=== PATIENT | male | born 1980 | race Caucasian/White ===

== ENCOUNTER 2016-06-05 20:31 | Inpatient (IN) | payer SELFPAY ==
[~2016-06-05] VITALS: Ht 182.9 cm; Wt 104.0 kg
[2016-06-05 20:44] VITALS: BP 162/76; PULSE 120; RESP 37; O2SAT 93
[2016-06-05 21:05] LABS: BASOPHILS % (AUTO) 0.2 % (0-3); EOSINOPHILS % (AUTO) 0.2 % (0-5); MONOCYTES % (AUTO) 11.5 % (4-12); Mean Corpuscular Volume 86.3 fL (81-100); NEUTROPHILS % (AUTO) 82.4 % (40-74); Platelet Count 168 bil/L (150-400)
--- NOTE | 2016-06-05 21:18 | DRSVH ---
PROCEDURE: X-RAY CHEST ONE VIEW, PORTABLE ([id number]) INDICATIONS: shortness of breath , cough TECHNIQUE: One view of the chest was acquired. COMPARISON: None. FINDINGS: Surgical changes and devices: radiation monitor leads are seen over the chest. Lungs and pleura: No pleural effusions or pneumothorax. Lungs are clear. Mediastinum: Mediastinal contours appear normal. Heart size is normal. Bones and chest wall: No suspicious bony lesions. Overlying soft tissues appear unremarkable. IMPRESSION: No acute disease is seen in this semiupright portable chest Dictated by: Yaron Atkins M.D. on 06/05/2016 at 21:15 Approved by: Yaron Atkins M.D. on 06/05/2016 at 21:15
[2016-06-05 21:25] LABS: TROPONIN T 0.01 ug/L (0.0-0.011)
--- NOTE | 2016-06-05 21:46 | ED.REPORT ---
HPI-Dyspnea / Wheezing Date of Service Jun 05, 2016 ED Provider: Jose Rasmussen MD A 36 year old male presents to the ED complaining of flu symptoms that began 2 weeks ago. Associated symptoms include SOB, fever, wheezing, myalgia, sore throat, diarrhea, vomiting, productive cough with clear sputum, dysuria and rhinorrhea. Patient has also been experiencing insomnia due to the cough. He reports that he woke up this morning, began coughing and felt as if he could not breathe. Patient has been drinking a lot of fluid and has remained in bed since onset. His symptoms have become progressively worse over the past 3 days. Patient denies smoking since symptom onset. Nursing Notes Stated Complaint: DIFFICULTY BREATHING Chief Complaint: FLU/Cold Symptoms Nursing Notes Reviewed: Yes Allergies: Coded Allergies: No Known Allergies (Unverified , 06/05/16) Scheduled Azithromycin (Zithromax) 250 Mg Tablet 250 MG PO DAILY Scheduled PRN Ondansetron (Zofran) 4 Mg Tablet 4 MG PO Q4H PRN PRN For Nausea General Time Seen by MD: 21:38 Chief Complaint Other (Dyspnea) Hx Obtained From: Patient Arrived By: Walk-in Sudden in Onset?: No Onset Occurred: More than a week ago... (2 weeks) Symptom Duration: Since onset Associated with: Reports: Cough, Fever, Nausea Pertinent Negative: Pt denies other symptoms Recent Healthcare: No recent doctor visit, No recent hospitalization Past Medical History Past Medical History Notes: No PCP Past Medical History None reported Past Surgical History None reported Smoking History Current Every Day Smoker Social History Alcohol Use: Denies alcohol use Drug Use: THC Other Social History: Good social support, Local resident Ambulatory Status Independent Review of Systems Constitutional: Reports: Chills, Fever, Malaise Ears / Nose / Throat: Reports: Sore throat Respiratory: Reports: Dyspnea on exertion, Prod cough, clear, Shortness of breath Cardiovascular: Denies: Chest pain Musculoskeletal: Reports: Myalgia Allergy / Immune: Reports: Rhinorrhea Complete sys rev & neg: except as marked. GI: Reports: Nausea, Denies: Abdominal pain, Vomiting Male: Reports Dysuria Neurologic: Denies: Change LOC Psychiatric: Reports: Insomnia Physical Exam Initial Vital Signs Vital Signs (First) Date Time Temp Pulse Resp B/P Pulse Ox O2 Delivery O2 Flow Rate FiO2 06/05/16 20:44 39.3 120 37 162/76 93 Room Air Initial VS: Reviewed Head / Eyes: Atraumatic, Normocephalic, PERRL Extremities: Vascular intact, Neuro intact, No swelling, No tenderness Skin: Warm, Dry, No cyanosis Neurologic: Alert, Oriented, Nonfocal Psychiatric: Mood/affect normal, Behavior normal, Normal thought content General/Constitutional: Awake, Alert Neck: Atraumatic, Supple Soft Tissue Neck: Positive: Cervical adenopathy L... (Mild), Cervical adenopathy R... (Mild ) Respiratory / Chest: Atraumatic, Breath sounds = bilat Wheezing / Retractions: Positive: Wheezing mild (Scattered wheezes ) Cardiovascular: Regular rhythm, Heart sounds NL, No gallop, No murmurs, No rubs Heart Rate / Rhythm: Positive: Tachycardia ENT: Atraumatic, Airway patent ENT: Oropharynx injected without exudate Interpretation & Diagnostics Lab Results Interpretation Result Diagram: 06/05/16203906/05/162039 Test 06/05/16 20:40 White Blood Count 12.7th/mm3 (3.8-10.1) Red Blood Count 4.97mil/mm3 (4.40-5.80) Hemoglobin 15.4g/dL (13.8-17.2) Hematocrit 42.9% (41.0-50.0) Mean Corpuscular Volume 86.3fL (81-100) Mean Corpuscular Hemoglobin 31.0pg (27.0-35.0) Mean Corpuscular Hemoglobin Concent 35.9% (32.0-37.0) Red Cell Distribution Width 12.6% (12.3-15.4) Platelet Count 168bil/L (150-400) Neutrophils (%) (Auto) 82.4% (40-74) Lymphocytes (%) (Auto) 5.1% (14-46) Monocytes (%) (Auto) 11.5% (4-12) Eosinophils (%) (Auto) 0.2% (0-5) Basophils (%) (Auto) 0.2% (0-3) D-Dimer 0.5mg/L (<0.50) Sodium Level 129mEq/L (134-144) Potassium Level 3.5mEq/L (3.5-5.2) Chloride Level 90mEq/L (97-108) Carbon Dioxide Level 20mmol/L (18-29) Blood Urea Nitrogen 9mg/dL (6-20) Creatinine 0.78mg/dL (0.76-1.27) Estimat Glomerular Filtration Rate 120mL/min (>59) Glucose Level 135mg/dL (60-99) Lactic Acid Level 1.8mmol/L (0.4-2.0) Calcium Level 8.5mg/dL (8.5-10.1) Total Bilirubin 0.9mg/dL (0.0-1.2) Aspartate Amino Transf (AST/SGOT) 35U/L (0-50) Alanine Aminotransferase (ALT/SGPT) 21U/L (0-44) Alkaline Phosphatase 76U/L (25-150) Troponin T 0.010ug/L (0.0-0.011) Pro-B-Type Natriuretic Peptide 87.30pg/mL (0-86) Total Protein 8.2g/dL (6.4-8.4) Albumin 3.9g/dL (3.4-5.0) Lab Results Interpretation: Blood Gas Report pH 7.507 pCO2 30 pO2 61 cHCO3 (P) 23.4 cBase 1.7 tHb 15.6 sO2 93.5 (93% saturation on room air) fCOHb 1.2 FMetHb .8 FO2Hb 91.6 X-Ray Chest Interpretation Chest Xray Interpretation: IMPRESSION: No acute disease is seen in this semiupright portable chest Dictated by: Yaron Atkins M.D. on 06/05/2016 at 21:15 Interpretation / Wet Read by: Interpret - Radiologist Re-Eval/Medical Decision Med Decision/Clinical Course 36-year-old previously healthy smoker with a febrile illness and a cough. Influenza was suspected however the influenza screen was negative and his report is that he has been symptomatic for about 3 days so Tamiflu is unlikely to be helpful. Also reports she had a respiratory illness prior to this so I considered the possibility that he is developing a post-influenza pneumonia. He was quite to An arterial blood gas showed that he was hyperventilating, while he is mildly hypoxic saturations on the blood gas are greater than 90% and I do not believe he has a requirement for supplemental oxygen. Pulmonary embolism was considered however he is low risk and has a normal d-dimer. We started azithromycin in the emergency department. He was given ondansetron for nausea and vomiting. He is noted to be mildly hyponatremic and admits to pushing water at home. Advised him to drink some fluids that contain electrolytes. He will finish a five-day course of azithromycin use albuterol as needed refer to the associated residence clinic for follow-up. Re-Evaluation/Progress : Time of Eval: 23:06 Patient Status: Condition improved Re-Evaluation/Progress Note: Patient is rechecked. He is informed of his lab results, X-ray results and diagnosis. All of the patient's questions are addressed. He understands and agrees with the treatment plan. Counseled Regarding: Diagnosis, Lab results, Need for follow-up, When/why to return to ED Discharge & Departure Impression: Primary Impression: Pneumonia Pneumonia type: due to unspecified organism Laterality: unspecified laterality Lung location: unspecified part of lung Qualified Code: B99.9 - Unspecified infectious disease Disposition: Home Discharge Condition All VS Reviewed: Yes Condition: Stable Patient Instructions: Bacterial Pneumonia (ED) Additional Instructions: ED evaluation included interview exam labs chest x-ray. We note increasing shortness of breath and fever, cough which has been present for .1 week now worse with production of brown sputum. While no pneumonia is seen on chest x- ray, we will treat for pneumonia given clinical appearance. Azithromycin for a 5 day course is started in ED. May use ondansetron as needed for nausea/ vomiting. Albuterol 2 puffs every 4 hours as needed for wheezing. Get adequate rest, use ibuprofen or tylenol as needed for fevers. For hydration , use gatorade or broth so you get some elctrolyte replacement. Return to ED for increasing shortness of breath uncontrolled vomiting. Referrals: [facility] Scribe Attestation Portions of this note were transcribed by Kunal Garcia. I, Dr. Rasmussen personally performed the history, physical exam and medical decision-making; I reviewed and confirmed the accuracy of the information in the transcribed note. Signed by: Kunal Garcia, 06/05/16, 1244. copies to: [facility] Jose Rsamussen MD Jun 05, 2016 21:46 KUNAL GARCIA Jun 05, 2016 22:03
[2016-06-05] MEDS ORDERED: _Albuterol-HFA 60 Puff Inhaler INHALATION PRN (22:05)
--- NOTE | 2016-06-05 22:40 | ABG ---
DateTimeAnalyzed 22:35:00 -_ pH ____7.507 - 7.350 7.450 pCO2 ___29.8__ -mmHg 35.0 45.0 pO2 ___61.0__ -mmHg 69.0 116 HCO3- ___23.4__ -mmol/L 22.0 26.0 ABE ____1.7__ -mmol/L -2.0 2.0 tHb ___15.6__ -g/dL O2Hb ___91.6__ -% COHb ____1.2__ -% MetHb ____0.8__ -% sO2 ___93.5__ -% 25.0 FIO2 ___21.0__ -% Drawn By RB - Notified By RB - Notified Whom DR - B 744 -mmHg tO2 ___20.1__ -Vol% Ramez test _Positive -
[2016-06-05] MEDS ORDERED: Ondansetron 2 mg/mL 2 mL Inj IVPUSH ONE (23:05)
[2016-06-05 23:15] VITALS: BP 143/76; PULSE 108; RESP 30; O2SAT 93
[2016-06-05] MEDS ORDERED: ONDA4TAB6 PO (23:15)
[2016-06-05] MEDS ORDERED: ZIT250 PO (23:15)
[2016-06-06] VITALS (17 sets, daily range): BP systolic 121–182; BP diastolic 64–119; PULSE 96–135; RESP 20–32; O2SAT 91–97
[2016-06-06] MEDS ORDERED: 0.9% Sodium Chloride 1,000 ML IV ONE ×2 (00:45→04:40)
[2016-06-06] MEDS ORDERED: Alum-Mag Hydrox-Simeth 30 mL Suspension PO PRN (02:15)
[2016-06-06] MEDS ORDERED: Polyethylene Glycol (PEG) 17 Gm Powder PO PRN (02:15)
[2016-06-06] MEDS ORDERED: Ondansetron 2 mg/mL 2 mL Inj IVPUSH PRN (02:25)
--- NOTE | 2016-06-06 03:01 | PCM.HPMED ---
Subjective Date of Service Jun 06, 2016 Primary Provider: Admitting Physician: Nuvia Ascencio MD Primary Care Physician: Nopstacy Attending Physician: Nuvia Ascencio MD Chief Complaint: Fevers, myalgia History of Present Illness: Previously healthy 36 yo M smoker presents with complaints of fevers, chills, myalgia, diaphoresis, fatigue, SOB, n/v/d, and productive cough x 2 weeks. Patient reports that his symptoms have been worsening the past 3 days and today his cough and shortness of breath was worse so he came to the ER for assessment. He reports he has been drinking a lot of water and has been in bedrest since being sick. He reports that his roommate also had similar symptoms and was sick a few days prior to him. His roommate was sick for approximately 2 weeks and has recovered now. He denies any other sick contacts or recent travel but reports that he just moved up from [place] 3 months ago. He does not have a PCP currently, but reports his childhood immunizations are UTD. In the ED, he was found to be tachycardia, tachypneic, and feverish up to 39.6c. His SpO2 was between 92-93% on RA at rest, but was noted to decrease down to 88% with ambulation. His WBC was 12.7 with 82.4% neutrophils%. His CMP was pertinent for Sodium of 129 and Lactic acid of 1.8. He did have an ABG that showed mild respiratory alkalosis with pH of 7.507 and pO2 of 61. His portable CXR did not show any acute disease. Rapid Flu screen was negative. Review of Systems: 12 point ROS negative except as stated in HPI Allergies Coded Allergies: No Known Allergies (Unverified , 06/05/16) Home Medications Denies any PMH Healthy Surgical History Denies any Family History Noncontributory Social History Hx Alcohol Use: No Hx Substance Use: Yes (Smokes marijuana) Smoking Status: Current Every Day Smoker Living Arrangement: with Friends/Roommate Exam Vital Signs Vital Sign - Last Date Time Temp Pulse Resp B/P Pulse Ox O2 Delivery O2 Flow Rate FiO2 06/06/16 02:16 38.1 96 22 152/87 93 Room Air Intake and Output 06/05/16 06/05/16 06/06/16 Cumulative From/Thru 15:00 23:00 07:00 06/05/16 20:44 - 06/06/16 00:58 Intake Total 1100 ml 1100 ml Balance 1100 ml 1100 ml Intake Oral 100 ml 100 ml IV Total 1000 ml 1000 ml Exam Gen: WD/WN male in moderate distress HEENT: PERRLA, Sclera non-icteric, Oropharynx erythematous without exudates Neck: Soft, mildly tender to palpation, shotty cervical lymph nodes palpated CV: Tachycardic, no m/r/c Resp: B/L diffuse wheezing, increased respiratory effort, no accessory muscle usage noted Abd: Soft, nontender MSK: Muscle strength grossly intact and equal Neuro: Alert and oriented, Light sensation grossly intact Skin: Warm, Dry, Intact Psych: Appropriate mood and affect Lab and Diagnostics Result Diagram: 06/05/16203906/05/162039 X-Rays, CTs and MRIs PROCEDURE: X-RAY CHEST ONE VIEW, PORTABLE ([id number]) INDICATIONS: shortness of breath , cough TECHNIQUE: One view of the chest was acquired. COMPARISON: None. FINDINGS: Surgical changes and devices: hospital monitor leads are seen over the chest. Lungs and pleura: No pleural effusions or pneumothorax. Lungs are clear. Mediastinum: Mediastinal contours appear normal. Heart size is normal. Bones and chest wall: No suspicious bony lesions. Overlying soft tissues appear unremarkable. IMPRESSION: No acute disease is seen in this semiupright portable chest Assessment & Plan Previously healthy 36 yo M smoker presents with complaints of fevers, chills, myalgia, diaphoresis, fatigue, SOB, n/v/d, and productive cough x 2 weeks, worse in the past 3 days. Patient is admitted for observation and workup of possible post-viral pneumonia. Sepsis -Patient meets sepsis criteria with elevated Temp, tachycardia, tachypnea, elevated WBC, and lungs as source of suspected infection. -With patient's symptoms and hypoxia, post-viral pneumonia cannot be ruled out. DDx includes Coccidiomycosis due to recent residence in [place]. -Initial Rapid Flu negative in ER for Influenza A&B. Patient received 1L bolus in the ER. Will plan for another 1L bolus then IV NS at 150mls/hr. -Nasopharyngeal PCR pending. -Procalcitonin and ESR pending -Consider CT scan in the AM. -Albuterol and Tylenol PRN -Patient already received 1 dose of Azithromycin, will plan to continue the pack. N/V/D -Symptomatic management with IV Zofran -IV NS 150mls/hr -General Diet as tolerated. Tobacco Abuse -Nicotine patch as needed Pain Evaluation: Adequate Pain Control VTE Mechanical Devices: Intermittant Pneumatic CD Resuscitation Status: CPR: Attempt Resuscitation Attending Statement Pt seen and examined by myself and agree with above plan. Bhupendra Cade DO Jun 06, 2016 02:34 Nuvia Ascencio MD Jun 06, 2016 18:55
[2016-06-06] MEDS: 0.9% Sodium Chloride 1,000 ML IV SCH ×3 (03:13→12:22)
[2016-06-06] MEDS ORDERED: no medications (03:38)
--- NOTE | 2016-06-06 03:51 | NUR ---
Admission Pt admitted for shortness of breath/fever. Temp most recently 38.1C. Given tylenol recently. Fan on in room RR 32. Ins/exp wheezes. Breath sounds moderately decreased. Pt is able to rest on his side. Pt understands to use call light when up OOB SCDs on. Cont pulse ox on at bedside. Care ongoing
[2016-06-06] MEDS: Albuterol 2.5 mg/3 mL Inhalation Solution NEB PRN ×4 (04:15→18:33)
[2016-06-06 05:18] LABS: APPEARANCE,URINE CLEAR (CLEAR,HAZY); COLOR,URINE YELLOW (YELLOW); OCCULT BLOOD,URINE MODERATE (NEGATIVE); UROBILINOGEN,URINE NORMAL (NORMAL)
--- NOTE | 2016-06-06 06:00 | NUR ---
Anxiety RN called to room by friend saying that the pt was having an anxiety attack. Pt stated to RN, "I'm freaking out". RR 40. HR 130. T39.1 Lungs are decreased with insp/exp wheezing. Reported findings to MD. Called RT to assess patient as well. Ativan ordered. MD arrived at bedside to see patient. Ativan given. Pt appears calmer. Tylenol given. Pt aware that MD ordered temazepam to be given now for sleep deprivation. Awaiting RX to approve order. Care ongoing
[2016-06-06 07:41] LABS: BASOPHILS % (AUTO) 0.2 % (0-3); EOSINOPHILS % (AUTO) 0.3 % (0-5); MONOCYTES % (AUTO) 13.6 % (4-12); Mean Corpuscular Hemoglobin 30.9 pg (27.0-35.0); Mean Corpuscular Volume 87.3 fL (81-100); NEUTROPHILS % (AUTO) 81.1 % (40-74); Platelet Count 134 bil/L (150-400)
[2016-06-06] MEDS ORDERED: Influenza (Adult) Vaccine 0.5 mL Syringe IM ONE (08:30)
--- NOTE | 2016-06-06 11:10 | NUR ---
Nausea/Vomiting Patient reported nausea and vomiting. 4 mg of ondansetron given. Denies pain at this time. Call light and tray table within reach. Will continue to monitor patient hourly.
--- NOTE | 2016-06-06 15:52 | NUR ---
Social Work Screening D: EMR reviewed. Pt is a 36Y old male Kimmie for Flu Like Illness. Insurance is Self Pay, No PCP listed. ADINA met with Pt at bedside, SW role explained. Pt lives at home with friend/roommate in [place] where he is independent. Pt reports use of THC. SW confirmed Pt does not have PCP and has no insurance. Pt agreeable to schedule appointment at the [facility] for follow up and establishing care appointment. ADINA requested CM Modern Greek Studies Professor to schedule appointments for Pt. Pt provided with [facility] Application. ADINA left message for [facility]to follow Pt for IRIS eligibility. No discharge needs identified at this time. Pt to likely travel home via POV with roommate to drive when medically stable. A: Pt who is independent at baseline P: Pt agreeable to schedule appointment at the [facility] for follow up and establishing care appointment. ADINA requested CM Modern Greek Studies Professor to schedule appointments for Pt. Pt provided with [facility] Application. ADINA left message for [facility]CAto follow Pt for IRIS eligibility. No discharge needs identified at this time. Pt to likely travel home via POV with roommate to drive when medically stable. TREASURE Lin Addendum: 06/07/16 at 1428 by SHARI LEE Hospitalist, Please consider low cost medications for Pt at discharge as he does not have insurance. TREASURE Lin
[2016-06-06] MEDS: Albuterol 1.25 mg/3 mL Inhalation Solution NEB SCH ×2 (16:02→19:38)
[2016-06-06] MEDS: LORazepam 1 mg Tablet PO PRN (17:41)
--- NOTE | 2016-06-06 18:28 | NUR ---
Anxiety Patient is very anxious and patient reported having a difficult time not being in control of his life. Ativan ordered TID. Ativan given at 1740. Patient attempting to control anxiety through deep breathing but unable to breath deeply. Call RT to administer Neb treatment. Call light and tray table within reach. Will continue to monitor patient hourly.
[2016-06-07] VITALS (13 sets, daily range): BP systolic 132–144; BP diastolic 75–93; PULSE 94–121; RESP 17–28; O2SAT 92–98
[2016-06-07] MEDS: Albuterol 2.5 mg/3 mL Inhalation Solution NEB PRN ×2 (00:54→23:25)
--- NOTE | 2016-06-07 06:28 | NUR ---
SOB Patient has been requesting Albuterol treatments regularly throughout the night. Patient Pulled Tele leads off twice this shift, in addition to his continuous pulse Oximeter lead. Patient Anxious and attempting to get comfortable by crawling around a lot in bed.
[2016-06-07 06:41] LABS: BASOPHILS % (AUTO) 0.3 % (0-3); EOSINOPHILS % (AUTO) 0.1 % (0-5); MONOCYTES % (AUTO) 13.8 % (4-12); Mean Corpuscular Hemoglobin 30.5 pg (27.0-35.0); Mean Corpuscular Volume 89.3 fL (81-100); NEUTROPHILS % (AUTO) 74.3 % (40-74); Platelet Count 122 bil/L (150-400)
--- NOTE | 2016-06-07 08:43 | DRSVH ---
PROCEDURE: CT CHEST, ABDOMEN AND PELVIS [facility] CONTRAST ([id number]) INDICATIONS: fever, cough, abd pain TECHNIQUE: After the administration of oral and intravenous contrast, 5 mm thick sections acquired from the lung apices to the symphysis. 5 mm coronal and sagittal reformats were performed, with additional 7 mm c oronal MIP reformats through the lungs. For radiation dose reduction, the following was used: autom ated exposure control, adjustment of mA and/or kV according to patient size. COMPARISON: None. FINDINGS: Image quality: Excellent. CHEST: Lungs and pleura: No acute airspace opacities. No pleural effusions or pneumothorax. Central and p eripheral airways appear patent. There is diffuse bilateral central bronchial thickening and peribron chial groundglass haziness. No focal airspace opacities are present. Mediastinum: Heart size is normal. No pericardial effusion. Mildly enlarged, 12 mm short axis subca rinal adenopathy, 11 mm short axis peritracheal adenopathy, and mildly prominent less than 10 mm shor t axis bilateral hilar lymph node enlargement is present. Thoracic aorta and central pulmonary arteri es are normal in size. Esophagus is normal in caliber. No hiatal hernia. Chest wall: No axillary or supraclavicular adenopathy by size criteria. Thyroid gland is within nor mal limits as visualized.. ABDOMEN: Solid organs: Liver and spleen are normal in size and enhancement. Gallbladder is within normal soto its. Biliary system is non dilated. Pancreas enhances normally. No adrenal nodules. Kidneys demon strate normal size and enhancement, without hydronephrosis. Peritoneum and bowel: Bowel loops demonstrate normal wall thickness and caliber. No free fluid or a ir. Normal appendix. Nodes and vessels: No retroperitoneal or mesenteric adenopathy by size criteria. Aorta and inferior vena cava are normal in size. Miscellaneous: No ventral hernias. PELVIS: Genitourinary: Bladder wall thickness is normal. Miscellaneous: No inguinal hernias or adenopathy. Bones: No suspicious bony lesions. No vertebral body compression fractures. IMPRESSION: 1. Moderate bilateral bronchitis and minimal associated peribronchial pneumonia. This is associated w ith presumably reactive mediastinal and hilar lymph node enlargement; followup chest CT with IV contr ast in 3 months is recommended to exclude the less likely possibility of underlying neoplasm. 2. No evidence of acute process within the abdomen, or pelvis. 3. Normal appendix. Dictated by: Cathy Mcgee M.D. on 06/07/2016 at 8:41 Approved by: Cathy Mcgee M.D. on 06/07/2016 at 8:41
[2016-06-07] MEDS: Albuterol 1.25 mg/3 mL Inhalation Solution NEB SCH ×4 (09:13→19:21)
[2016-06-07] MEDS: LORazepam 1 mg Tablet PO PRN ×2 (09:22→17:30)
--- NOTE | 2016-06-07 14:29 | NUR ---
Social Work Continued Discharge Planning D: EMR Reviewed. Pt is on day 1 of hospitalization for Flu Like Illness. RCA is working with Pt and has submitted a IRIS application on Pt's behalf. Pt already provided with [facility] application. CM Career Development Coordinator will be scheduling a hospital follow up appointment for Pt at the [facility]. ADINA kindly requests consideration of low cost medications at discharge as Pt currently uninsured. ADINA anticipates Pt to discharge home via POV when medically stable. SW will continue to follow. A: Pt who is independent at baseline P: RCA is working with Pt and has submitted a IRIS application on Pt's behalf. Pt already provided with [facility] application. CM Career Development Coordinator will be scheduling a hospital follow up appointment for Pt at the [facility]. ADINA kindly requests consideration of low cost medications at discharge as Pt currently uninsured. ADINA anticipates Pt to discharge home via POV when medically stable. SW will continue to follow. TREASURE Lin
--- NOTE | 2016-06-07 17:28 | PCM.PNMED ---
Subjective Date of Service Jun 07, 2016 Subjective says feeling better than yesterday but still with SOB, cough, diarrhea, and weakness Exam Vital Signs Vital Sign - Last Date Time Temp Pulse Resp B/P Pulse Ox O2 Delivery O2 Flow Rate FiO2 06/07/16 17:15 37.3 105 19 139/87 92 Room Air 06/07/16 00:57 2.00 Intake and Output 06/06/16 06/06/16 06/07/16 Cumulative From/Thru 15:00 23:00 07:00 06/05/16 20:44 - 06/07/16 06:10 Intake Total 2803 ml 1500 ml 6642 ml Output Total 1725 ml 2200 ml 4525 ml Balance 1078 ml -700 ml 2117 ml Intake Oral 1500 ml 1750 ml IV Total 2803 ml 4892 ml Output Urine Total 1725 ml 2200 ml 4525 ml # Voids 1 # Bowel Movements 1 0 1 General: Alert, Cooperative, No Acute Distress Eyes: Scleral Anicteric Mouth: Mucous Membr Moist/Ina Neck: Supple Chest & Lungs: Chest Wall Normal, Coarse breath sounds, Expiratory wheezes ( bilat) Cardiovascular: Regular Rate/Rhythm Abdomen: Non-tender, Non-distended, Normoactive bowel tones, Soft Extremities: No cyanosis/clubbing/edma bilat Neurological: Grossly Neurologically Intact, Normal Speech IVs and Medications Medications Reviewed: Medications were reviewed in detail Lab and Diagnostics Result Diagram: 06/07/1661406/07/16614 X-Rays, CTs and MRIs PROCEDURE: X-RAY CHEST ONE VIEW, PORTABLE ([id number]) INDICATIONS: shortness of breath , cough TECHNIQUE: One view of the chest was acquired. COMPARISON: None. FINDINGS: Surgical changes and devices: ice cream vendor leads are seen over the chest. Lungs and pleura: No pleural effusions or pneumothorax. Lungs are clear. Mediastinum: Mediastinal contours appear normal. Heart size is normal. Bones and chest wall: No suspicious bony lesions. Overlying soft tissues appear unremarkable. IMPRESSION: No acute disease is seen in this semiupright portable chest Assessment & Plan Previously healthy 36 yo M smoker presents with complaints of fevers, chills, myalgia, diaphoresis, fatigue, SOB, n/v/d, and productive cough x 2 weeks, worse in the past 3 days. # Acute Sepsis. poa. source viral pneumonia. clinically improving -Patient meets sepsis criteria with elevated Temp, tachycardia, tachypnea, elevated WBC, and lungs as source of suspected infection. -viral PCR positive for Adenovirus -Consider CT scan in the AM. -Albuterol and Tylenol PRN -On Azithromycin -r/u Legionella as well -discussed with ID today. c/w supportive care -c/w Albuterol neb # acute N/V/D. present on admission. likely 2ndry to underlying adenovirus infection. -Symptomatic management -C. Diff negative # Tobacco Abuse -Nicotine patch as needed # Acute hyponatremia. poa. - Resolved with IVF Dispo: 1-2 days VTE Mechanical Devices: Intermittant Pneumatic CD Resuscitation Status: CPR: Attempt Resuscitation Time spent 30 min Efrem Mandujano Jun 07, 2016 17:28
--- NOTE | 2016-06-07 17:31 | NUR ---
Pain/Anxiety Patient reported generalized pain and anxiety. 975 mg of acetaminophen given every 6 hours and 1 mg of lorazepam given every 8 hours. Patient reported feeling worse today. Patient repositions self for comfort. Call light and tray table within reach. Will continue to monitor patient hourly.
[2016-06-08] VITALS (9 sets, daily range): BP systolic 108–156; BP diastolic 73–88; PULSE 87–113; RESP 16–28; O2SAT 92–96
[2016-06-08] MEDS: LORazepam 1 mg Tablet PO PRN ×4 (02:57→21:49)
[2016-06-08] MEDS: Albuterol 2.5 mg/3 mL Inhalation Solution NEB PRN ×2 (03:38→17:29)
--- NOTE | 2016-06-08 04:04 | NUR ---
Breathing Patient has been receiving several breathing treatments this shift. Patient has a productive cough and is restless and anxious. Ativan PO was given once this shift. Patient's spo2 drops while sleeping w/o O2. Patient on 3L Oxy mask while sleeping at 97%.
[2016-06-08] MEDS: Albuterol 1.25 mg/3 mL Inhalation Solution NEB SCH ×2 (09:00→11:00)
--- NOTE | 2016-06-08 16:21 | PCM.PNMED ---
Subjective Date of Service Jun 08, 2016 Subjective says feeling better than yesterday but still with SOB, cough, diarrhea, and weakness Exam Vital Signs Vital Sign - Last Date Time Temp Pulse Resp B/P Pulse Ox O2 Delivery O2 Flow Rate FiO2 06/08/16 13:27 36.7 113 16 124/82 93 Room Air 06/08/16 03:38 3.00 Intake and Output 06/07/16 06/07/16 06/08/16 Cumulative From/Thru 15:00 23:00 07:00 06/05/16 20:44 - 06/08/16 06:40 Intake Total 1300 ml 1182 ml 9124 ml Output Total 750 ml 5275 ml Balance 550 ml 1182 ml 3849 ml Intake Oral 1300 ml 1182 ml 4232 ml IV Total 4892 ml Output Urine Total 750 ml 5275 ml # Voids 3 4 # Bowel Movements 0 1 Exam General: Alert, Cooperative, No Acute Distress Eyes: Scleral Anicteric Mouth: Mucous Membr Moist/[place] Neck: Supple Chest & Lungs: Chest Wall Normal, Coarse breath sounds bilat, Expiratory wheezes (bilat) Cardiovascular: Regular Rate/Rhythm Abdomen: Non-tender, Non-distended, Normoactive bowel tones, Soft Extremities: No cyanosis/clubbing/edema bilat Neurological: Grossly Neurologically Intact, Normal Speech IVs and Medications Medications Reviewed: Medications were reviewed in detail Lab and Diagnostics Result Diagram: 06/07/1661406/07/16614 X-Rays, CTs and MRIs PROCEDURE: X-RAY CHEST ONE VIEW, PORTABLE ([id number]) INDICATIONS: shortness of breath , cough TECHNIQUE: One view of the chest was acquired. COMPARISON: None. FINDINGS: Surgical changes and devices: art dealer leads are seen over the chest. Lungs and pleura: No pleural effusions or pneumothorax. Lungs are clear. Mediastinum: Mediastinal contours appear normal. Heart size is normal. Bones and chest wall: No suspicious bony lesions. Overlying soft tissues appear unremarkable. IMPRESSION: No acute disease is seen in this semiupright portable chest Assessment & Plan Previously healthy 36 yo M smoker presents with complaints of fevers, chills, myalgia, diaphoresis, fatigue, SOB, n/v/d, and productive cough x 2 weeks, worse in the past 3 days. # Acute Sepsis. poa. source viral pneumonia. clinically improving but slowly -Patient met sepsis criteria with elevated Temp, tachycardia, tachypnea, elevated WBC, and lungs as source of suspected infection. -viral PCR positive for Adenovirus -CT chest/abdomen: "Moderate bilateral bronchitis and minimal associated peribronchial pneumonia. This is associated with presumably reactive mediastinal and hilar lymph node enlargement; followup chest CT with IV contrast in 3 months is recommended to exclude the less likely possibility of underlying neoplasm." -c/w Neb treatment -Legionella ruled out -discussed with ID on 06/07. c/w supportive care -consider starting steroid treatment if respiratory status does not improve by tomorrow. # acute N/V/D. present on admission. likely 2ndry to underlying adenovirus infection. -Symptomatic management -C. Diff negative # Tobacco Abuse -Nicotine patch as needed # Acute hyponatremia. poa. - Resolved with IVF Dispo: 1-2 days VTE Mechanical Devices: Intermittant Pneumatic CD Resuscitation Status: CPR: Attempt Resuscitation Time spent 25 min Efrem Mandujano Jun 08, 2016 16:21
--- NOTE | 2016-06-08 18:12 | NUR ---
Anxiety/ Breathing Pt reports mild improvement w/ anxiety. States that it is worse because he is having difficulty breathing. Lung sounds bilateral wheezing, crackles, moist, and tight. TID ativan given to help keep him relaxed, as well as neb tx. Pt is anxious to go home, but hopes to feel better prior to discharge. Call light w/in reach, bed down and in locked position.
[2016-06-08] MEDS: Albuterol-Ipratropium 3 mL Inhalation Solution NEB SCH (22:56)
[2016-06-09] VITALS (7 sets, daily range): BP systolic 108–131; BP diastolic 70–78; PULSE 72–91; RESP 18–20; O2SAT 92–95
--- NOTE | 2016-06-09 03:56 | NUR ---
Anxiety/Teaching Pt. was moderately anxious in beginning of shift. Anxiety meds given. Also, this RN teached pt. that not only would deep breathing would help his anxiety that it is also a good exercise for the lungs too. Roommate came to visit, which also seemed to put pt. at ease. Also, RT came in to give scheduled Neb treatment, which seemed to help anxiety too. Will continue to monitor.
[2016-06-09 05:46] LABS: EOSINOPHILS % (AUTO) 1.2 % (0-5); MONOCYTES % (AUTO) 11.4 % (4-12); Mean Corpuscular Hemoglobin 32.3 pg (27.0-35.0); Mean Corpuscular Volume 91.3 fL (81-100); NEUTROPHILS % (AUTO) 65.3 % (40-74); Platelet Count 180 bil/L (150-400)
[2016-06-09] MEDS: Albuterol-Ipratropium 3 mL Inhalation Solution NEB SCH ×4 (07:56→21:21)
[2016-06-09] MEDS: LORazepam 1 mg Tablet PO PRN ×2 (09:08→15:31)
--- NOTE | 2016-06-09 11:59 | NUR ---
Set up hospital follow up appointment for patient on 06/22/16 check in at 1015 for a 1030 appointment. [facility] is [facility]. Updated CDS SALES ADVISOR
--- NOTE | 2016-06-09 13:11 | NUR ---
DIscharge Pt d/c'd home at approx 1240. Reviewed Lovenox injections, cath care, and discharge instructions w/ patient and his daughter. All questions answered and a Lovenox teaching kit and all cath care supplies were given. IV d/c'd intact. Pt left w/ all belongings and hard copy of RX. Pt taken to his daughter's POV via w/c. Addendum: 06/09/16 at 1313 by CHRISSIE MON RN Above not on wrong patient.
--- NOTE | 2016-06-09 14:45 | PCM.PNMED ---
Subjective Date of Service Jun 09, 2016 Subjective continuing to slowly improve but still with SOB, cough, diarrhea, and weakness Exam Vital Signs Vital Sign - Last Date Time Temp Pulse Resp B/P Pulse Ox O2 Delivery O2 Flow Rate FiO2 06/09/16 12:00 73 18 95 Room Air 06/09/16 05:49 37.0 131/78 06/08/16 03:38 3.00 Intake and Output 06/08/16 06/08/16 06/09/16 Cumulative From/Thru 15:00 23:00 07:00 06/05/16 20:44 - 06/09/16 06:17 Intake Total 520 ml 641 ml 36200 ml Output Total 400 ml 5675 ml Balance 520 ml 241 ml 4610 ml Intake Oral 520 ml 641 ml 5393 ml IV Total 4892 ml Output Urine Total 400 ml 5675 ml # Voids 2 6 # Bowel Movements 1 Exam General: Alert, Cooperative, No Acute Distress Eyes: Scleral Anicteric Mouth: Mucous Membr Moist/[place] Neck: Supple Chest & Lungs: Chest Wall Normal, Coarse breath sounds bilat, Expiratory wheezes (bilat) improved compared to yesterday Cardiovascular: Regular Rate/Rhythm Abdomen: Non-tender, Non-distended, Normoactive bowel tones, Soft Extremities: No cyanosis/clubbing/edema bilat Neurological: Grossly Neurologically Intact, Normal Speech IVs and Medications Medications Reviewed: Medications were reviewed in detail Lab and Diagnostics Result Diagram: 06/09/16 0530 06/09/16 0530 X-Rays, CTs and MRIs PROCEDURE: X-RAY CHEST ONE VIEW, PORTABLE ([id number]) INDICATIONS: shortness of breath , cough TECHNIQUE: One view of the chest was acquired. COMPARISON: None. FINDINGS: Surgical changes and devices: monitoring specialist leads are seen over the chest. Lungs and pleura: No pleural effusions or pneumothorax. Lungs are clear. Mediastinum: Mediastinal contours appear normal. Heart size is normal. Bones and chest wall: No suspicious bony lesions. Overlying soft tissues appear unremarkable. IMPRESSION: No acute disease is seen in this semiupright portable chest Assessment & Plan Previously healthy 36 yo M smoker presents with complaints of fevers, chills, myalgia, diaphoresis, fatigue, SOB, n/v/d, and productive cough x 2 weeks, worse in the past 3 days. # Acute Sepsis. poa. source viral pneumonia. clinically improving but slowly -Patient met sepsis criteria with elevated Temp, tachycardia, tachypnea, elevated WBC, and lungs as source of suspected infection. -viral PCR positive for Adenovirus -CT chest/abdomen: "Moderate bilateral bronchitis and minimal associated peribronchial pneumonia. This is associated with presumably reactive mediastinal and hilar lymph node enlargement; followup chest CT with IV contrast in 3 months is recommended to exclude the less likely possibility of underlying neoplasm." -c/w Neb treatment -Legionella ruled out -discussed with ID on 06/07. c/w supportive care -consider starting steroid treatment if respiratory status does not improve or gets worse # acute N/V/D. present on admission. likely 2ndry to underlying adenovirus infection. poa. improving -Symptomatic management -C. Diff negative # Tobacco Abuse -Nicotine patch as needed # Acute hyponatremia. poa. - Resolved with IVF Dispo: likely home tomorrow if continue to improve VTE Mechanical Devices: Intermittant Pneumatic CD Resuscitation Status: CPR: Attempt Resuscitation Time spent 25 min Efrem Mandujano Jun 09, 2016 14:45
--- NOTE | 2016-06-09 15:31 | NUR ---
Social Work Continued Discharge Planning: SW met with patient at bedside to discuss discharge plan. Patient states plan as home with friends who to provide support and care. Patient has scheduled appointment on 06/22/16 check in at 1015 for a 1030 appointment. This is [facility]. Patient was provided with [facility] application and [facility] following. Patient states having no identified discharge needs at this time. SW to follow. PLAN: HOme with friend support, via POV. Outpatient residency clinic appt on 06/22/16 at 10:30am. SW to follow Esmer AMANDA
--- NOTE | 2016-06-09 16:30 | NUR ---
Anxiety/Activity Pt appears more relaxed this shift. States he really wanted to go home because he misses his dogs, but understands the need to stay an additional night. Pt refused to ambulate in hallways w/ staff, states he just wants to rest. Appears to have increased SOB w/ activity, although, better than previous shift w/ this patient. Bed down and in locked position, call light w/in reach.
[2016-06-10] MEDS: LORazepam 1 mg Tablet PO PRN (02:22)
--- NOTE | 2016-06-10 02:35 | NUR ---
Resp.Function VSS with sats in the mid 90s on RA.Lungs tight with faint expiratory wheezes noted.Has intermittent prod. cough of yellow thick sputum.Some SOB noted with exertion.Mine. food and fluids qs w/o c/o nausea.Up ind. in room and ind. with ADLs.States he feels much better and is resting comfortably at this time.Will cont. to monitor.
[2016-06-10 05:26] VITALS: BP 107/66; PULSE 71; RESP 20; O2SAT 95
[2016-06-10] MEDS: Albuterol-Ipratropium 3 mL Inhalation Solution NEB SCH (08:46)
[2016-06-10 08:48] VITALS: PULSE 85; RESP 18; O2SAT 96
[2016-06-10 09:40] VITALS: BP 131/80; PULSE 96; RESP 18; O2SAT 94
--- NOTE | 2016-06-10 10:24 | PCM.DIMED ---
Discharge Instructions Date of Service Jun 10, 2016 Dates of Hospitalization Jun 06, 2016 at 01:45 Discharge Diagnosis Discharge Diagnosis # Acute Sepsis. present on admission. source viral pneumonia. clinically resolved -viral PCR positive for Adenovirus # CT chest/abdomen: "Moderate bilateral bronchitis and minimal associated peribronchial pneumonia. This is associated with presumably reactive mediastinal and hilar lymph node enlargement; followup chest CT with IV contrast in 3 months is recommended." # Acute nausea, vomiting and diarrhea. present on admission. Due to underlying Adenovirus infection. Resolved # History of Tobacco use # Acute hyponatremia. present on admission. Resolved Diet No restrictions Activity No restrictions Call your provider Fever or Chills, Shortness of breath, Vomitting, Excessive diarrhea Patient Instructions Seek immediate medical attention if any new or worsening signs or symptoms occur. Follow-up plan 1. Followup with primary care provider (Dr. Brown) on 06/16/16 at 10:[address] [facility] [address] [place] [id number] Follow-up Provider: Diego Brown Masoud Jun 10, 2016 10:24
[2016-06-10] MEDS ORDERED: ALBU18HF INHALATION (10:26)
[2016-06-10] MEDS ORDERED: NICO1PAT5 TOPICAL (10:26)
--- NOTE | 2016-06-10 12:24 | NUR ---
Discharge Pt was d/c'd from [facility] room 1014 at 1220 home via private vehicle with his friend. All discharge teaching and instructions were done with pt at bedside. All pt questions were answered and pt compliant with d/c instructions. Pt to f/u with pcp. Date of apt given. Hard copy of RX with pt. No items in the safe or in the pharmacy. All belongings with pt. IV d/c'd on previous shift.
--- NOTE | 2016-06-10 14:12 | NUR ---
Discharge: Order for discharge acknowledged. Plan remains as home with friend support and care. Patient has scheduled appointment on 06/22/16 check in at 1015 for a 1030 appointment. This is with [facility]. . Patient states having no identified discharge needs at this time. SW to follow if further needs arise. PLAN: Home with friend support via POV, and outpt residency clinic follow up appointment. Esmer AMANDA
--- NOTE | 2016-06-10 18:40 | PCM.DC.MED ---
Discharge Summary Date of Service Jun 10, 2016 Dates of Hospitalization Date of Hospital Admission Jun 06, 2016 at 01:45 Date of Discharge: Jun 10, 2016 Providers: Admitting Physician: Nuvia Ascencio MD Primary Care Physician: Pool Attending Physician: Nuvia Ascencio MD Diagnosis at Time of Discharge Diagnosis at Time of Discharge # Acute Sepsis. present on admission. source viral pneumonia. clinically resolved -viral PCR positive for Adenovirus # CT chest/abdomen: "Moderate bilateral bronchitis and minimal associated peribronchial pneumonia. This is associated with presumably reactive mediastinal and hilar lymph node enlargement; followup chest CT with IV contrast in 3 months is recommended." # Acute nausea, vomiting and diarrhea. present on admission. Due to underlying Adenovirus infection. Resolved # History of Tobacco use # Acute hyponatremia. present on admission. Resolved Procedures XRay, CTs & MRIs PROCEDURE: X-RAY CHEST ONE VIEW, PORTABLE ([id number]) INDICATIONS: shortness of breath , cough TECHNIQUE: One view of the chest was acquired. COMPARISON: None. FINDINGS: Surgical changes and devices: crystal slicer leads are seen over the chest. Lungs and pleura: No pleural effusions or pneumothorax. Lungs are clear. Mediastinum: Mediastinal contours appear normal. Heart size is normal. Bones and chest wall: No suspicious bony lesions. Overlying soft tissues appear unremarkable. IMPRESSION: No acute disease is seen in this semiupright portable chest Brief History Previously healthy 36 yo M smoker presents with complaints of fevers, chills, myalgia, diaphoresis, fatigue, SOB, n/v/d, and productive cough x 2 weeks, worse in the past 3 days. Hospital Course # Acute Sepsis. poa. source viral pneumonia. clinically resolved -Patient met sepsis criteria with elevated Temp, tachycardia, tachypnea, elevated WBC, and lungs as source of suspected infection. -viral PCR positive for Adenovirus -CT chest/abdomen: "Moderate bilateral bronchitis and minimal associated peribronchial pneumonia. This is associated with presumably reactive mediastinal and hilar lymph node enlargement; followup chest CT with IV contrast in 3 months is recommended to exclude the less likely possibility of underlying neoplasm." -treated with Neb t -Legionella ruled out -discussed with ID on 06/07 and treated with supportive care # acute N/V/D. present on admission. likely 2ndry to underlying adenovirus infection. poa. Resolved -Symptomatic management -C. Diff negative # Tobacco Abuse -Nicotine patch as needed # Acute hyponatremia. poa. - Resolved with IVF by day of d/c lungs CTA bilaterally. patient tolerating PO diet without further nausea and no more diarrhea. Exam Vital Signs (Last) Date Time Temp Pulse Resp B/P Pulse Ox O2 Delivery O2 Flow Rate FiO2 06/10/16 09:40 36.6 96 18 131/80 94 Room Air 06/08/16 03:38 3.00 Test 06/05/16 20:40 06/06/16 04:45 06/06/16 06:53 06/07/16 12:16 D-Dimer 0.5mg/L (<0.50) Lactic Acid Level 1.8mmol/L (0.4-2.0) Magnesium Level 1.7mg/dL (1.6-2.6) Total Bilirubin 0.9mg/dL (0.0-1.2) Aspartate Amino Transf (AST/SGOT) 35U/L (0-50) Alanine Aminotransferase (ALT/SGPT) 21U/L (0-44) Alkaline Phosphatase 76U/L (25-150) Troponin T 0.010ug/L (0.0-0.011) Pro-B-Type Natriuretic Peptide 87.30pg/mL (0-86) Total Protein 8.2g/dL (6.4-8.4) Albumin 3.9g/dL (3.4-5.0) Procalcitonin 0.05ng/mL (See Comment) Urine Color Yellow (YELLOW) Urine Appearance Clear (CLEAR,HAZY) Urine pH 6.0 (5.0-8.0) Urine Specific [place] 1.020 (1.003-1.035) Urine Protein Tracemg/dL (NEG,TRACE) Urine Glucose (UA) Negativemg/dL (NEGATIVE) Urine Ketones Negativemg/dL (NEGATIVE) Urine Occult Blood Moderate (NEGATIVE) Urine Nitrite Negative (NEGATIVE) Urine Bilirubin Negative (NEGATIVE) Urine Urobilinogen Normalmg/dL (NORMAL) Urine Leukocyte Esterase Negative (NEGATIVE) Urine RBC 0-2/hpf (0-2) Urine WBC 0-5/hpf (0-5) Urine Epithelial Cells Occasional/hpf (NONE-MOD) Urine Crystals None seen (NONE SEEN) Urine Bacteria None/hpf (NONE-FEW) Urine Hyaline Casts None/lpf (NONE) Urine Granular Casts None seen (NONE SEEN) Urine Waxy Casts None seen (NONE SEEN) Urine Red Blood Cell Casts None seen (NONE SEEN) Urine White Blood Cell Casts None seen (NONE SEEN) Urine Mucus Present (None Seen) Urine Trichomonas None seen (NONE SEEN) Urine Yeast None (NONE SEEN) Urine Culture Reflexed Not indicated Erythrocyte Sedimentation Rate 29mm/hr (0-15) Urine Legionella pneumophilia Ag Negative (Negative) Test 06/07/16 17:29 06/09/16 05:30 Hold Urine Received (Received) White Blood Count 8.2th/mm3 (3.8-10.1) Red Blood Count 4.37mil/mm3 (4.40-5.80) Hemoglobin 14.1g/dL (13.8-17.2) Hematocrit 39.9% (41.0-50.0) Mean Corpuscular Volume 91.3fL (81-100) Mean Corpuscular Hemoglobin 32.3pg (27.0-35.0) Mean Corpuscular Hemoglobin Concent 35.3% (32.0-37.0) Red Cell Distribution Width 13.3% (12.3-15.4) Platelet Count 180bil/L (150-400) Neutrophils (%) (Auto) 65.3% (40-74) Lymphocytes (%) (Auto) 20.9% (14-46) Monocytes (%) (Auto) 11.4% (4-12) Eosinophils (%) (Auto) 1.2% (0-5) Basophils (%) (Auto) 1.0% (0-3) Sodium Level 140mEq/L (134-144) Potassium Level 3.6mEq/L (3.5-5.2) Chloride Level 99mEq/L (97-108) Carbon Dioxide Level 30mmol/L (18-29) Blood Urea Nitrogen 10mg/dL (6-20) Creatinine 0.57mg/dL (0.76-1.27) Estimat Glomerular Filtration Rate 173mL/min (>59) Glucose Level 111mg/dL (60-99) Calcium Level 8.3mg/dL (8.5-10.1) Discharge Medications As needed Albuterol Sulfate (Ventolin HFA Inhaler) 200 Puff/18 Gm Inhaler 2 PUFF INHALATION Q6 PRN PRN For Wheezing Prescribed by: NINFA DUBON MD Nicotine 14 mg/24 hr Patch (Nicotine 14 mg/24 hr Patch) 1 Each Patch.td24 1 PATCH TOPICAL Q24H PRN PRN For Tobacco Withdrawal Prescribed by: NINFA DUBON MD Followup Plan Disposition: Home Follow-up plan 1. Followup with primary care provider (Dr. Brown) on 06/16/16 at 10:30 AM [facility] [address] [place] [id number] Discharge Diet: No restrictions Discharge Activity: No restrictions Patient Instructions Seek immediate medical attention if any new or worsening signs or symptoms occur. Follow-up Provider: Diego Brown DO Time spent 30 min copies to: Diego Borwn Masoud Jun 10, 2016 18:40
== END 2016-06-10 12:21 | disposition home or self-care (01) | DRG 871 ==
LOC: SED 20:31 → OBSVTOIN 06-06 01:45 → OSC 06-06 01:45
PROVIDERS: ADMIT Specialist; ATTEND Specialist
PROC: 4A033R1 Measurement of Arterial Saturation, Peripheral, Percutaneous Approach (ICD-10-PCS; principal; 2016-06-05)
DX: A41.9 Sepsis, unspecified organism (principal); J18.9 Pneumonia, unspecified organism; E87.1 Hypo-osmolality and hyponatremia; B97.0 Adenovirus as the cause of diseases classified elsewhere; F17.210 Nicotine dependence, cigarettes, uncomplicated